=== PATIENT | female | born 1970 | race Caucasian/White ===

== ENCOUNTER 2019-11-03 22:30 | Emergency (ER) | payer OTHER ==
[~2019-11-03] VITALS: Ht 170.2 cm; Wt 90.7 kg
[2019-11-03 22:37] VITALS: BP 103/73
--- NOTE | 2019-11-04 00:20 | NUR ---
PT W/C ASSISTED BY FAMILY TO BED 1
--- NOTE | 2019-11-04 00:22 | NUR ---
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
[2019-11-04] MEDS ORDERED: DIAZEPAM 5 MG TAB PO ONE (00:55)
[2019-11-04] MEDS ORDERED: KETOROLAC 60 MG/2 ML VIAL IM ONE (00:55)
--- NOTE | 2019-11-04 02:40 | NUR ---
RESULT BACK AND NOTED BY ERMD AND FOR D/C
[2019-11-04 02:46] VITALS: BP 118/79
--- NOTE | 2019-11-04 02:46 | NUR ---
Patient discharged with v/s stable. Written and verbal after care instructions given and explained. Patient alert, oriented and verbalized understanding of instructions. Ambulatory with steady gait. All questions addressed prior to discharge. ID band removed. Patient advised to follow up with PMD. Rx of LIDODERM 5%, NAPROSYN 500MG given. Patient educated on indication of medication including possible reaction and side effects. Opportunity to ask questions provided and answered.
== END 2019-11-04 02:46 | disposition home or self-care (01) ==
LOC: MED 22:30
DX: S39.012A Strain of muscle, fascia and tendon of lower back, initial encounter (principal); R32 Unspecified urinary incontinence; F17.210 Nicotine dependence, cigarettes, uncomplicated; F32.9 Major depressive disorder, single episode, unspecified; Z90.49 Acquired absence of other specified parts of digestive tract; Z88.5 Allergy status to narcotic agent; Z98.890 Other specified postprocedural states; X58.XXXA Exposure to other specified factors, initial encounter; Y93.89 Activity, other specified; Y92.89 Other specified places as the place of occurrence of the external cause; Y99.8 Other external cause status
CPT/HCPCS: 72100; 96372; 99283; J1885

== ENCOUNTER 2020-01-13 23:48 | Emergency (ER) | payer OTHER ==
[~2020-01-13] VITALS: Ht 170.2 cm; Wt 86.2 kg
[2020-01-13 23:54] VITALS: BP 143/73
--- NOTE | 2020-01-13 23:54 | NUR ---
PT AMBULATED TO BED #12
--- NOTE | 2020-01-14 00:05 | NUR ---
49 YO F BIB SELF FOR C/C OF 9/10 ACHING L FOOT PAIN X2 DAYS. PT STATES SHE "DROPPED A SLAB OF GRANITE" ON HER LEFT FOOT WHILE WORKING IN HER YARD. PT STATES SHE TOOK HER USUAL PERCOCET 10 MG PAIN MEDICATION AT 1100 ON 01/12. PT SAYS SHE IS HAVING A HARD TIME AMBULATING. UPON VISUAL EXAMINATION THE L FOOT IS SLIGHTLY EDEMATOUS WITH NO BRUISING. PEDAL PULSES EQUAL AND REGULAR. DENIES TRAVEL, SOB, FEVER, OR COUGH. BED LOCKED AND IN LOWEST POSITION. SIDE RAILS X1. MED HX: FIBROMYALGIA, RHEUMATOID ARTHRITIS, LUPUS RX: PERCOCET, CELEXA, LYRICA, ROBAXIN ALLERGIES TO MORPHINE
--- NOTE | 2020-01-14 00:09 | NUR ---
ERMD AT BEDSIDE EVALUATING PT.
[2020-01-14] MEDS ORDERED: DEXAMETHASONE 4 MG/ML VIAL PO ONE (00:10)
--- NOTE | 2020-01-14 00:25 | NUR ---
RAD AT BEDSIDE
[2020-01-14 01:15] VITALS: BP 143/73
--- NOTE | 2020-01-14 01:15 | NUR ---
Patient discharged with v/s stable. Written and verbal after care instructions given and explained. Patient verbalized understanding. Ambulatory with steady gait. All questions addressed prior to discharge. Advised to follow up with PMD.
== END 2020-01-14 01:15 | disposition home or self-care (01) ==
LOC: MED 23:48
DX: S90.32XA Contusion of left foot, initial encounter (principal); W20.8XXA Other cause of strike by thrown, projected or falling object, initial encounter; Z88.6 Allergy status to analgesic agent; Y93.H3 Activity, building and construction; Y92.89 Other specified places as the place of occurrence of the external cause; Y99.8 Other external cause status
CPT/HCPCS: 73630; 99283; Q0092; J1100

== ENCOUNTER 2020-06-23 15:35 | Emergency (ER) | payer OTHER ==
[~2020-06-23] VITALS: Ht 170.2 cm; Wt 83.9 kg
[2020-06-23 15:39] VITALS: BP 101/76
--- NOTE | 2020-06-23 15:44 | NUR ---
PT AMBULATED TO BED 5.
--- NOTE | 2020-06-23 15:54 | NUR ---
50 y/o female from home c/o right sided body pain s/p fall 1 day ago at [employer]. Pt denies LOC. States constant headache and increased pain in right shoulder and hand. 8/10 tolerable, generalized aching. Pt able to ambulate. No defomities noted. Skin warm, dry, and intact. VSS medhx: Lupus, rhumatoid arthritis, fibromyalgia
--- NOTE | 2020-06-23 16:15 | NUR ---
Oriana aguilar in [facility] - 06/23/20 at 1615 by [email or web address] X-Ray at bedside.
--- NOTE | 2020-06-23 16:15 | NUR ---
X RAY AT BEDSIDE.
--- NOTE | 2020-06-23 16:48 | NUR ---
Dr Washington at bedside re-evaluating pt
[2020-06-23 16:57] VITALS: BP 101/76
--- NOTE | 2020-06-23 16:58 | NUR ---
Patient discharged with v/s stable. Written and verbal after care instructions given and explained. Patient alert, oriented and verbalized understanding of instructions. Ambulatory with steady gait. All questions addressed prior to discharge. ID band removed. Patient advised to follow up with PMD. Rx of Ibuprofen 600mg given. Patient educated on indication of medication including possible reaction and side effects. Opportunity to ask questions provided and answered.
== END 2020-06-23 16:58 | disposition home or self-care (01) ==
LOC: MED 15:35
DX: M75.31 Calcific tendinitis of right shoulder (principal); M06.9 Rheumatoid arthritis, unspecified; M79.7 Fibromyalgia; Z88.5 Allergy status to narcotic agent; W01.0XXA Fall on same level from slipping, tripping and stumbling without subsequent striking against object, initial encounter; Y93.89 Activity, other specified; Y92.89 Other specified places as the place of occurrence of the external cause; Y99.8 Other external cause status
CPT/HCPCS: 73030; 99283; Q0092

== ENCOUNTER 2020-10-14 08:32 | Emergency (ER) | payer OTHER ==
[~2020-10-14] VITALS: Ht 172.7 cm; Wt 86.2 kg
[2020-10-14 08:36] VITALS: BP 114/70
[2020-10-14] MEDS ORDERED: DICYCLOMINE HCL LIQUID 20 MG, ALUMINUM HYD/MAG/SIMETHICONE 30 ML, LIDOCAINE VISCOUS 2% ... PO ONE ×3 (08:45)
--- NOTE | 2020-10-14 08:48 | NUR ---
50 YEAR OLD FEMALE COMPLAINS OF ABD PAIN X TODAY. DENIES NAUSEA/VOMITING/DIARRHEA. BOWEL SOUNDS PRESENT, ACTIVE X4. ABD NON-TENDED, SOFT, FLAT. AOX4. BREATHING EVEN AND UNLABORED. SKIN WARM AND DRY. BED IN LOWEST POSITION, LOCKED, SIDERAIL UP X1. PMH - RA, FIBROMYALGIA, LUPUS ALLERGY - MORPHINE
[2020-10-14] MEDS ORDERED: DICYCLOMINE HCL LIQUID 10 MG/5 ML UDC ONE (08:58)
[2020-10-14] MEDS ORDERED: LIDOCAINE VISCOUS 2% 20 ML UDC ONE (08:58)
[2020-10-14] MEDS ORDERED: ALUMINUM HYD/MAG/SIMETHICONE 30 ML UDC ONE (08:58)
--- NOTE | 2020-10-14 09:45 | NUR ---
PATIENT STILL FEELING PAIN. VERBALIZED HISTORY OF KIDNEY STONES. ERMD AWARE
[2020-10-14] MEDS ORDERED: fentaNYL citrate 0.05 MG/ML VIAL IVP ONE ×2 (09:50→11:15)
--- NOTE | 2020-10-14 10:10 | NUR ---
PATIENT TAKEN TO CT
--- NOTE | 2020-10-14 10:17 | NUR ---
PATIENT BACK FROM CT
[2020-10-14 11:03] LABS: BASOPHILS # (AUTO) 0.2 K/uL (0.00-0.22); BASOPHILS % (AUTO) 2.5 % (0.0-2.0); EOSINOPHILS # (AUTO) 0.2 K/uL (0-0.4); EOSINOPHILS % (AUTO) 3.1 % (0.0-4.0); HEMATOCRIT 40.1 % (36-48); HEMOGLOBIN 13.6 g/dL (12.0-16.0); LYMPHOCYTES # (AUTO) 1.5 K/uL (2.5-16.5); LYMPHOCYTES % (AUTO) 19.8 % (20.5-51.1); MEAN CORPUSCULAR HEMOGLOBIN 29 pg (27-31); MEAN CORPUSCULAR HGB CONC 34 g/dL (33-37); MEAN CORPUSCULAR VOLUME 86.5 fL (80-94); MONOCYTES # (AUTO) 0.7 K/uL (0.8-1.0); MONOCYTES % (AUTO) 8.8 % (1.7-9.3); NEUTROPHILS # (AUTO) 5.1 K/uL (1.8-7.7); NEUTROPHILS % (AUTO) 65.8 % (42.2-75.2); PLATELET COUNT (AUTO) 276 K/uL (140-450); RED BLOOD CELL COUNT(AUTO) 4.63 MIL/uL (4.20-5.40); RED CELL DISTRIBUTION WIDTH 12.9 % (11.6-13.7); WHITE BLOOD COUNT (AUTO) 7.8 K/uL (4.8-10.8)
[2020-10-14 11:13] LABS: ALBUMIN 3.5 g/dL (3.4-5.0); ANION GAP 11.9 (8-16); CARBON DIOXIDE 26.3 mmol/L (21-32); CREATININE 0.9 mg/dL (0.6-1.3); POTASSIUM 4.2 mmol/L (3.5-5.1); TOTAL BILIRUBIN 0.3 mg/dL (0.0-1.0)
[2020-10-14 11:39] LABS: APPEARANCE,URINE CLEAR (CLEAR); BILIRUBIN,URINE NEGATIVE (NEGATIVE); BLOOD, URINE NEGATIVE (NEGATIVE); COLOR,URINE YELLOW (YELLOW); LEUKOCYTE ESTERASE ,URINE TRACE (NEGATIVE); NITRITE, URINE NEGATIVE (NEGATIVE); UGLUCOSE NEGATIVE (NEGATIVE)
[2020-10-14 12:08] VITALS: BP 103/63
--- NOTE | 2020-10-14 12:10 | NUR ---
Patient discharged with v/s stable. Written and verbal after care instructions about abdominal pain given and explained. Patient alert, oriented and verbalized understanding of instructions. Ambulatory with steady gait. All questions addressed prior to discharge. ID band removed. Patient advised to follow up with PMD. Rx of motrin, norco, zofran, albuterol given. Patient educated on indication of medication including possible reaction and side effects. Opportunity to ask questions provided and answered.
[2020-10-14 12:24] LABS: RBC,URINE 0-5 /HPF (0-5)
== END 2020-10-14 12:10 | disposition home or self-care (01) ==
LOC: MED 08:32
DX: R10.30 Lower abdominal pain, unspecified (principal); F17.210 Nicotine dependence, cigarettes, uncomplicated; Z88.5 Allergy status to narcotic agent; Z79.899 Other long term (current) drug therapy; Z90.49 Acquired absence of other specified parts of digestive tract
CPT/HCPCS: 36415; 74176; 80053; 81001; 81025; 83690; 85025; 87086; 96374; 96376; 99284; J3010

== ENCOUNTER 2020-11-27 22:13 | Emergency (ER) | payer OTHER ==
[~2020-11-27] VITALS: Ht 170.2 cm; Wt 81.6 kg
[2020-11-27 22:38] VITALS: BP 116/76
--- NOTE | 2020-11-27 23:04 | NUR ---
TO ER BED 11
--- NOTE | 2020-11-27 23:08 | NUR ---
50 YR OLD FEMALE PRESENTED TO THE ER WITH CC OF LEFT HIP PAIN. PT IS AOX4. PT STATES 10/ SHARP LEFT HIP PAIN RADIATING TO LEFT KNEE THAT STARTED YESTERDAY MORNING. PT DENIES FALLS. PT DENIES OTHER MEDICAL COMPLAINTS. BED LOCKED IN LOWEST POSITION WITH 2 SIDE RAILS UP FOR SAFETY. HISTORY- LUPUS, RA, FIBROMYALGIA ALLERGIES- MORPHINE
--- NOTE | 2020-11-27 23:08 | NUR ---
ERMD AT BEDSIDE FOR MEDICAL EVALUATION.
[2020-11-27] MEDS ORDERED: HYDROcodone/APAP 5/325 MG 1 TAB TAB PO ONE (23:15)
[2020-11-27] MEDS ORDERED: KETOROLAC 30 MG/ML VIAL IM ONE (23:15)
--- NOTE | 2020-11-27 23:24 | NUR ---
PT TAKEN TO RAD VIA W/C
--- NOTE | 2020-11-27 23:36 | NUR ---
PT UNABLE TO PROVIDE URINE SAMPLE AT THIS TIME.
--- NOTE | 2020-11-27 23:45 | NUR ---
PT FOUND AWAKE LYING ON LEFT SIDE IN BED. PT STATES 8/10 LEFT HIP PAIN. PT DENIES OTHER MEDICAL COMPLAINTS. BED LOCKED IN LOWEST POSITION WITH 2 SIDE RAILS UP FOR SAFETY.
[2020-11-28 00:33] LABS: BARBITURATE, URINE NEGATIVE ng/ml (NEG <=200); BENZODIAZEPINE, URINE NEGATIVE ng/mL (NEG <=200); CANNABINOID, URINE NEGATIVE ng/mL (NEG <=50); COCAINE, URINE NEGATIVE ng/mL (NEG <=300)
[2020-11-28 00:34] LABS: OPIATE, URINE POSITIVE ng/mL (NEG <=2000); PHENCYCLIDINE SCREEN,URINE NEGATIVE ng/mL (NEG <=25)
[2020-11-28] MEDS ORDERED: LID5T TP (01:26)
--- NOTE | 2020-11-28 01:35 | NUR ---
Crutches dispensed. Taught proper use, patient returned demo.
[2020-11-28 01:40] VITALS: BP 114/73
--- NOTE | 2020-11-28 01:40 | NUR ---
Patient discharged with v/s stable. Written and verbal after care instructions given and explained. Patient alert, oriented and verbalized understanding of instructions. Ambulatory with steady gait w/ crutches. All questions addressed prior to discharge. ID band removed. Patient advised to follow up with PMD. Rx of lidocaine patches given. Patient educated on indication of medication including possible reaction and side effects. Opportunity to ask questions provided and answered.
== END 2020-11-28 01:40 | disposition home or self-care (01) ==
LOC: MED 22:13
DX: M25.552 Pain in left hip (principal); F17.210 Nicotine dependence, cigarettes, uncomplicated; Z88.5 Allergy status to narcotic agent; Z79.899 Other long term (current) drug therapy; Z90.49 Acquired absence of other specified parts of digestive tract
CPT/HCPCS: 73502; 80305; 81002; 81025; 96372; 99284; J1885